=== PATIENT | male | born 1940 | race Caucasian/White ===

== ENCOUNTER 2022-07-04 13:59 | Emergency (ER) | payer BC, MEDICARE, OTHER ==
[2022-07-04] MEDS ORDERED: Sodium Chloride 0.9% 10 ML Syringe FLUSH PRN (14:10)
[2022-07-04 14:34] LABS: HEMATOCRIT 21.1 % (40.0-54.0); MEAN CORPUSCULAR HEMOGLOBIN 35.6 pg (27.0-34.0); MEAN CORPUSCULAR HGB CONC 32.2 g/dL (33.0-35.0); MEAN CORPUSCULAR VOLUME 110.5 fL (80-100); PLATELET COUNT,PLT 102 10^3/uL (150-450); RED BLOOD CELL COUNT 1.91 10^6/uL (4.6-6.2); WHITE BLOOD CELL COUNT,WBC 4.3 10^3/uL (5.0-10.0)
[2022-07-04 14:54] LABS: ALBUMIN 2.9 g/dL (3.4-5.0); ANION GAP 16.2 mEq/L (7-13); BILIRUBIN TOTAL 0.4 mg/dL (0.2-1.0); BUN/CREATININE RATIO 15.5 (No establ ref range); C-REACTIVE PROTEIN 2.3 mg/dL (0.0-0.9); CALCIUM 8.7 mg/dL (8.5-10.1); CREATININE 1.68 mg/dL (0.70-1.30); EST CRCL DRUG DOSING (CG) 30.78 mL/min; POTASSIUM,K 4.2 mmol/L (3.5-5.1); PROTEIN TOTAL,TP 8.3 g/dL (6.4-8.2)
[2022-07-04 14:55] LABS: HEMOGLOBIN 6.8 g/dL (14.0-18.0)
[2022-07-04 14:56] LABS: A/G RATIO 0.54; BASOPHILS PERCENT AUTO 0.5 % (0.0-1.0); EOSINOPHILS PERCENT AUTO 0.5 % (1.0-3.0); LYMPHOCYTES PERCENT AUTO 16.2 % (20.5-50.1); MONOCYTES PERCENT AUTO 9.2 % (2-8); NEUTROPHILS PERCENT AUTO 73.6 % (42.2-75.2)
[2022-07-04 15:02] LABS: INR 1.1 (0.9-1.2); PROTHROMBIN TIME 11.5 SEC (9.0-12.0)
[2022-07-04 15:06] LABS: LACTIC ACID 2.3 mmol/L (0.4-2.0)
[2022-07-04] MEDS ORDERED: Sodium Chloride 0.9% 1,000 ML IV ONE ×2 (15:11→18:08)
[2022-07-04 15:38] LABS: LYMPHOCYTES PERCENT MAN 18 % (20-50); MONOCYTES PERCENT MAN 14 % (2-8); SEG NEUTROPHILS PERCENT MAN 68 % (42-75)
== END 2022-07-04 19:55 | disposition home or self-care (01) ==
LOC: DL.ED 13:59
DX: D64.9 Anemia, unspecified (principal)
CPT/HCPCS: 36415; 36430; 80053; 83605; 85025; 85610; 86140; 86850; 86900; 86901; 86920; 86922; 93005; 99284; J7030; P9016; 93010; J3490

== ENCOUNTER 2022-07-30 07:09 | Emergency (ER) | payer OTHER ==
[2022-07-30] MEDS ORDERED: Sodium Chloride 0.9% 10 ML Syringe FLUSH PRN (07:19)
[2022-07-30 07:35] LABS: HEMOGLOBIN 8.2 g/dL (14.0-18.0); MEAN CORPUSCULAR HEMOGLOBIN 34.3 pg (27.0-34.0); MEAN CORPUSCULAR HGB CONC 32.8 g/dL (33.0-35.0); MEAN CORPUSCULAR VOLUME 104.6 fL (80-100); PLATELET COUNT,PLT 114 10^3/uL (150-450); RED BLOOD CELL COUNT 2.39 10^6/uL (4.6-6.2); WHITE BLOOD CELL COUNT,WBC 3.6 10^3/uL (5.0-10.0)
[2022-07-30 07:50] LABS: BASOPHILS PERCENT AUTO 0.6 % (0.0-1.0); EOSINOPHILS PERCENT AUTO 1.4 % (1.0-3.0); LYMPHOCYTES PERCENT AUTO 16.8 % (20.5-50.1); MONOCYTES PERCENT AUTO 6.7 % (2-8); NEUTROPHILS PERCENT AUTO 74.5 % (42.2-75.2)
[2022-07-30 08:00] LABS: ANION GAP 14.9 mEq/L (7-13); BILIRUBIN TOTAL 0.4 mg/dL (0.2-1.0); BUN/CREATININE RATIO 16.4 (No establ ref range); CALCIUM 9.2 mg/dL (8.5-10.1); CREATININE 1.28 mg/dL (0.70-1.30); POTASSIUM,K 3.9 mmol/L (3.5-5.1); PROTEIN TOTAL,TP 8.2 g/dL (6.4-8.2)
[2022-07-30 08:03] LABS: A/G RATIO 0.58
[2022-07-30 08:19] LABS: BAND PERCENT MAN 5 %; EOSINOPHILS PERCENT MAN 1 % (1-3); LYMPHOCYTES % ATYPICAL MANUAL 1 %; LYMPHOCYTES PERCENT MAN 13 % (20-50); METAMYELOCYTE PERCENT MAN 1; MONOCYTES PERCENT MAN 2 % (2-8); SEG NEUTROPHILS PERCENT MAN 77 % (42-75)
== END 2022-07-30 08:45 | disposition home or self-care (01) ==
LOC: DL.ED 07:09
DX: R42 Dizziness and giddiness (principal); R11.10 Vomiting, unspecified; E78.00 Pure hypercholesterolemia, unspecified; I10 Essential (primary) hypertension; M10.9 Gout, unspecified; Z79.82 Long term (current) use of aspirin; Z79.899 Other long term (current) drug therapy
CPT/HCPCS: 36415; 70450; 80053; 83735; 84484; 85025; 93005; 93010; 99284; J3490

== ENCOUNTER 2022-10-26 13:49 | Inpatient (IN) | payer MEDICARE, BC, OTHER ==
[2022-10-26] MEDS ORDERED: Sodium Chloride 0.9% 10 ML Syringe FLUSH PRN (14:08)
[2022-10-26 14:15] LABS: HEMATOCRIT 25.1 % (40.0-54.0); HEMOGLOBIN 8.2 g/dL (14.0-18.0); MEAN CORPUSCULAR HEMOGLOBIN 33.3 pg (27.0-34.0); MEAN CORPUSCULAR HGB CONC 32.7 g/dL (33.0-35.0); PLATELET COUNT,PLT 69 10^3/uL (150-450); RED BLOOD CELL COUNT 2.46 10^6/uL (4.6-6.2); WHITE BLOOD CELL COUNT,WBC 7.4 10^3/uL (5.0-10.0)
[2022-10-26 14:16] LABS: BASOPHILS PERCENT AUTO 0.4 % (0.0-1.0); EOSINOPHILS PERCENT AUTO 0.3 % (1.0-3.0); LYMPHOCYTES PERCENT AUTO 5.1 % (20.5-50.1); MONOCYTES PERCENT AUTO 8.3 % (2-8); NEUTROPHILS PERCENT AUTO 85.9 % (42.2-75.2)
[2022-10-26 14:29] LABS: LYMPHOCYTES PERCENT MAN 9 % (20-50); MONOCYTES PERCENT MAN 8 % (2-8); SEG NEUTROPHILS PERCENT MAN 83 % (42-75)
[2022-10-26 14:32] LABS: ALBUMIN 2.2 g/dL (3.4-5.0); ANION GAP 20.4 mEq/L (7-13); BILIRUBIN TOTAL 0.6 mg/dL (0.2-1.0); BUN/CREATININE RATIO 21.2 (No establ ref range); CALCIUM 8.7 mg/dL (8.5-10.1); CREATININE 2.83 mg/dL (0.70-1.30); EST CRCL DRUG DOSING (CG) 16.75 mL/min; MAGNESIUM 2.1 mg/dL (1.8-2.4); PHOSPHORUS 5.5 mg/dL (2.6-4.7); POTASSIUM,K 4.4 mmol/L (3.5-5.1); PROTEIN TOTAL,TP 7.8 g/dL (6.4-8.2)
[2022-10-26 14:34] LABS: A/G RATIO 0.39
[2022-10-26 14:37] LABS: INR 1.3 (0.9-1.2); PROTHROMBIN TIME 12.8 SEC (9.0-12.0); PTT,PARTIAL THROMBOPLSTIN TIME 36.2 SEC (22.0-34.0)
[2022-10-26] MEDS ORDERED: Sodium Chloride 0.9% 1,000 ML IV ONE ×2 (14:45→15:40)
[2022-10-26 15:05] LABS: O2 DELIVERY DEVICE ROOM AIR
[2022-10-26 15:06] LABS: BASE EXCESS ARTERIAL -9 mmol/L ((-2)-(+3)); BICARBONATE,ARTERIAL 14.7 mmol/L (22-26); O2 SATURATION ARTERIAL 97 % (95-100); PCO2 ARTERIAL 25 mmHg (35-45); PH,ARTERIAL 7.38 (7.35-7.45); PO2 ARTERIAL 93 mmHg (70-100)
[2022-10-26 15:07] LABS: ALLEN TEST POSITIVE
[2022-10-26 15:15] LABS: LACTIC ACID 5.5 mmol/L (0.4-2.0)
[2022-10-26] MEDS ORDERED: Sodium Bicarbonate 8.4% 50 MEQ/50 ML Syringe IVPUSH ONE (15:15)
[2022-10-26] MEDS ORDERED: Ondansetron 4 MG Tab.DIS PO PRN (16:47)
[2022-10-26] MEDS ORDERED: Acetaminophen 325 MG Tab PO PRN (16:47)
[2022-10-26] MEDS ORDERED: Sodium Chloride 0.9% 500 ML IV SCH (17:00)
[2022-10-26] MEDS ORDERED: Heparin Sodium 5,000 Units/ML Vial SUBCUT SCH (21:00)
[2022-10-26] MEDS: Sodium Chloride 0.9% 1,000 ML IV SCH (22:37)
[2022-10-27 03:06] LABS: APPEARANCE,URINE SLIGHTLY CLOUDY (CLEAR); BILIRUBIN,URINE NEGATIVE (NEGATIVE); COLOR,URINE DARK YELLOW (YELLOW); GLUCOSE,URINE NEGATIVE (NEGATIVE); KETONES,URINE NEGATIVE (NEGATIVE); LEUKOCYTE ESTERASE,URINE NEGATIVE (NEGATIVE); NITRITE,URINE NEGATIVE (NEGATIVE); OCCULT BLOOD,URINE SMALL (NEGATIVE); PH,URINE 6.5 (5.0-9.0); PROTEIN,URINE 30 (NEGATIVE); UROBILINOGEN,URINE 0.2 mg/dL (0.2-1.0)
[2022-10-27 03:23] LABS: AMORPHOUS SEDIMENT,URINE MODERATE /HPF (NOT SEEN); BACTERIA,URINE FEW /HPF (0-FEW/HPF); EPITHELIAL CELLS,URINE FEW /HPF (NOT SEEN); WBC,URINE 0-5 /HPF (0-5/HPF)
[2022-10-27 06:23] LABS: BASOPHILS PERCENT AUTO 0.2 % (0.0-1.0); EOSINOPHILS PERCENT AUTO 0.5 % (1.0-3.0); HEMATOCRIT 21.6 % (40.0-54.0); HEMOGLOBIN 7.2 g/dL (14.0-18.0); LYMPHOCYTES PERCENT AUTO 7.3 % (20.5-50.1); MEAN CORPUSCULAR HEMOGLOBIN 34.3 pg (27.0-34.0); MEAN CORPUSCULAR HGB CONC 33.3 g/dL (33.0-35.0); MEAN CORPUSCULAR VOLUME 102.9 fL (80-100); MONOCYTES PERCENT AUTO 5.1 % (2-8); NEUTROPHILS PERCENT AUTO 86.9 % (42.2-75.2); PLATELET COUNT,PLT 64 10^3/uL (150-450); WHITE BLOOD CELL COUNT,WBC 5.6 10^3/uL (5.0-10.0)
[2022-10-27 06:39] LABS: ANION GAP 13.8 mEq/L (7-13); CALCIUM 7.9 mg/dL (8.5-10.1); CREATININE 2.37 mg/dL (0.70-1.30); EST CRCL DRUG DOSING (CG) 20.36 mL/min; POTASSIUM,K 3.8 mmol/L (3.5-5.1)
[2022-10-27] MEDS: Sodium Chloride 0.9% 1,000 ML IV SCH ×2 (08:44→19:31)
[2022-10-27] MEDS: cefTRIAXone 1 GM Vial IVPUSH SCH (14:23)
[2022-10-27] MEDS: Melatonin 3 MG Tab PO PRN (19:51)
[2022-10-28] MEDS: Sodium Chloride 0.9% 1,000 ML IV SCH (05:34)
[2022-10-28 06:08] LABS: MEAN CORPUSCULAR HEMOGLOBIN 33.7 pg (27.0-34.0); MEAN CORPUSCULAR HGB CONC 32.8 g/dL (33.0-35.0); MEAN CORPUSCULAR VOLUME 102.7 fL (80-100); RED BLOOD CELL COUNT 1.87 10^6/uL (4.6-6.2); WHITE BLOOD CELL COUNT,WBC 5.3 10^3/uL (5.0-10.0)
[2022-10-28 06:14] LABS: HEMATOCRIT 19.2 % (40.0-54.0); HEMOGLOBIN 6.3 g/dL (14.0-18.0)
[2022-10-28 06:18] LABS: ANION GAP 14.8 mEq/L (7-13); CALCIUM 7.7 mg/dL (8.5-10.1); CREATININE 2.42 mg/dL (0.70-1.30); EST CRCL DRUG DOSING (CG) 19.94 mL/min; POTASSIUM,K 3.8 mmol/L (3.5-5.1)
[2022-10-28] MEDS ORDERED: diphenhydrAMINE 50 MG/ML SDV IV ONE (09:18)
[2022-10-28] MEDS ORDERED: Sodium Chloride 0.9% 1,000 ML IV SCH (09:30)
[2022-10-28] MEDS ORDERED: Furosemide 20 MG/2 ML VIAL IVPUSH ONE (09:45)
[2022-10-28] MEDS: cefTRIAXone 1 GM Vial IVPUSH SCH (11:21)
[2022-10-29 05:51] LABS: MEAN CORPUSCULAR HGB CONC 33.2 g/dL (33.0-35.0); MEAN CORPUSCULAR VOLUME 102.5 fL (80-100); RED BLOOD CELL COUNT 1.97 10^6/uL (4.6-6.2); WHITE BLOOD CELL COUNT,WBC 6.1 10^3/uL (5.0-10.0)
[2022-10-29 05:54] LABS: HEMATOCRIT 20.2 % (40.0-54.0); HEMOGLOBIN 6.7 g/dL (14.0-18.0)
[2022-10-29 06:04] LABS: ANION GAP 16.1 mEq/L (7-13); CALCIUM 7.8 mg/dL (8.5-10.1); CREATININE 2.18 mg/dL (0.70-1.30); EST CRCL DRUG DOSING (CG) 22.14 mL/min; POTASSIUM,K 4.1 mmol/L (3.5-5.1)
[2022-10-29] MEDS ORDERED: diphenhydrAMINE 50 MG/ML SDV IV ONE (08:00)
[2022-10-29] MEDS ORDERED: Furosemide 20 MG/2 ML VIAL IVPUSH ONE (11:00)
[2022-10-29] MEDS: cefTRIAXone 1 GM Vial IVPUSH SCH (11:10)
[2022-10-29 16:07] LABS: HEMATOCRIT 30.8 % (40.0-54.0); HEMOGLOBIN 10.6 g/dL (14.0-18.0)
[2022-10-29] MEDS ORDERED: predniSONE 20 MG Tab PO ONE (22:50)
[2022-10-30 09:28] LABS: HEMATOCRIT 30.7 % (40.0-54.0); HEMOGLOBIN 10.4 g/dL (14.0-18.0); MEAN CORPUSCULAR HEMOGLOBIN 32.3 pg (27.0-34.0); MEAN CORPUSCULAR HGB CONC 33.9 g/dL (33.0-35.0); MEAN CORPUSCULAR VOLUME 95.3 fL (80-100); RED BLOOD CELL COUNT 3.22 10^6/uL (4.6-6.2); WHITE BLOOD CELL COUNT,WBC 3.5 10^3/uL (5.0-10.0)
[2022-10-30 09:56] LABS: ANION GAP 16.2 mEq/L (7-13); CALCIUM 8.1 mg/dL (8.5-10.1); CREATININE 2.08 mg/dL (0.70-1.30); EST CRCL DRUG DOSING (CG) 23.2 mL/min; POTASSIUM,K 4.2 mmol/L (3.5-5.1)
[2022-10-30] MEDS: predniSONE 20 MG Tab PO SCH (10:13)
[2022-10-30] MEDS: cefTRIAXone 1 GM Vial IVPUSH SCH (10:15)
[2022-10-30] MEDS: Melatonin 3 MG Tab PO PRN (23:29)
[2022-10-31] MEDS: predniSONE 20 MG Tab PO SCH (09:30)
[2022-10-31] MEDS: cefTRIAXone 1 GM Vial IVPUSH SCH (11:04)
[2022-10-31] MEDS ORDERED: Saccharomyces Boulardii (Probiotic) 250 MG Cap PO SCH (12:00)
== END 2022-10-31 14:00 | disposition home health service (06) | DRG 683 ==
LOC: DL.ED 13:49 → DL.MS 15:44
PROVIDERS: ADMIT Hospitalist; ATTEND Hospitalist
PROC: 30233N1 Transfusion of Nonautologous Red Blood Cells into Peripheral Vein, Percutaneous Approach (ICD-10-PCS; principal; 2022-10-30)
DX: N17.9 Acute kidney failure, unspecified (principal); E87.1 Hypo-osmolality and hyponatremia; E87.20 Acidosis, unspecified; I12.9 Hypertensive chronic kidney disease with stage 1 through stage 4 chronic kidney disease, or unspecified chronic kidney disease; E78.5 Hyperlipidemia, unspecified; N18.30 Chronic kidney disease, stage 3 unspecified; D63.1 Anemia in chronic kidney disease; D69.6 Thrombocytopenia, unspecified; D46.9 Myelodysplastic syndrome, unspecified; M10.9 Gout, unspecified; M25.439 Effusion, unspecified wrist; R62.7 Adult failure to thrive; Z68.21 Body mass index [BMI] 21.0-21.9, adult; Z97.3 Presence of spectacles and contact lenses; I10 Essential (primary) hypertension; E78.00 Pure hypercholesterolemia, unspecified; Z79.82 Long term (current) use of aspirin; Z79.899 Other long term (current) drug therapy
CPT/HCPCS: 36415; 36430; 36600; 71045; 76770; 80048; 80053; 80202; 81001; 82272; 82803; 82947; 83605; 83735; 84100; 84484; 85014; 85018; 85025; 85027; 85610; 85730; 86140; 86850; 86900; 86901; 86920; 86922; 87040; 87493; 93005; 93010; 96374; 97165-GO; 99223; 99233; 99239; 99284; 99285-25; A9270-GY; J0696; J1200; J1940; J3370; J3490; J7030; J7040; J7050; J7512; P9016

== ENCOUNTER 2022-11-01 19:00 | Inpatient (IN) | payer MEDICARE, BC, OTHER ==
[2022-11-01] MEDS ORDERED: Sodium Chloride 0.9% 10 ML Syringe FLUSH PRN (19:27)
[2022-11-01 19:38] LABS: HEMATOCRIT 29.5 % (40.0-54.0); HEMOGLOBIN 9.7 g/dL (14.0-18.0); MEAN CORPUSCULAR HEMOGLOBIN 32.2 pg (27.0-34.0); MEAN CORPUSCULAR HGB CONC 32.9 g/dL (33.0-35.0); PLATELET COUNT,PLT 63 10^3/uL (150-450); RED BLOOD CELL COUNT 3.01 10^6/uL (4.6-6.2); WHITE BLOOD CELL COUNT,WBC 9.8 10^3/uL (5.0-10.0)
[2022-11-01 19:44] LABS: BASOPHILS PERCENT AUTO 0.1 % (0.0-1.0); LYMPHOCYTES PERCENT AUTO 4.2 % (20.5-50.1); MONOCYTES PERCENT AUTO 8.2 % (2-8); NEUTROPHILS PERCENT AUTO 87.5 % (42.2-75.2)
[2022-11-01 19:47] LABS: INR 1.3 (0.9-1.2); PROTHROMBIN TIME 13.4 SEC (9.0-12.0)
[2022-11-01] MEDS ORDERED: Sodium Chloride 0.9% 1,000 ML IV ONE ×3 (19:51→21:16)
[2022-11-01 19:52] LABS: ALANINE AMINOTRANSFERASE,ALT 29 U/L (16-63); ALBUMIN 1.9 g/dL (3.4-5.0); ALKALINE PHOSPHATASE 85 U/L (46-116); ANION GAP 19.3 mEq/L (7-13); ASPARTATE AMNIOTRANSFERASE,AST 32 U/L (15-37); BILIRUBIN TOTAL 0.6 mg/dL (0.2-1.0); BLOOD UREA NITROGEN,BUN 72 mg/dL (7-18); BUN/CREATININE RATIO 35.5 (No establ ref range); C-REACTIVE PROTEIN 5.29 ng/dL (<=0.30); CALCIUM 8.9 mg/dL (8.5-10.1); CARBON DIOXIDE,CO2 20 mmol/L (21-32); CHLORIDE,CL 108 mmol/L (98-107); CREATININE 2.03 mg/dL (0.70-1.30); GLUCOSE RANDOM 96 mg/dL (70-99); MAGNESIUM 2.1 mg/dL (1.8-2.4); POTASSIUM,K 4.3 mmol/L (3.5-5.1); PROTEIN TOTAL,TP 6.7 g/dL (6.4-8.2); SODIUM,NA 143 mmol/L (136-145)
[2022-11-01 19:53] LABS: O2 DELIVERY DEVICE ROOM AIR
[2022-11-01 19:58] LABS: BASE EXCESS VENOUS -6.4 mmol/l ((-2)-(+3)); BICARBONATE,VENOUS 18 mmol/l (19-25); PCO2 VENOUS 35 mmHg (41-51); PH,VENOUS 7.34 (7.31-7.41); PO2 VENOUS 36 mmHg (35-42)
[2022-11-01 19:58] LABS: EST CRCL DRUG DOSING (CG) 26.85 mL/min; ESTIMATED GFR 32 mL/min (>=60)
[2022-11-01 19:59] LABS: ETHANOL BLOOD MEDICAL < 3 mg/dL (0); LACTIC ACID 6.2 mmol/L (0.4-2.0)
[2022-11-01 20:25] LABS: LYMPHOCYTES PERCENT MAN 2 % (20-50); MONOCYTES PERCENT MAN 5 % (2-8); SEG NEUTROPHILS PERCENT MAN 93 % (42-75)
[2022-11-01 22:26] LABS: APPEARANCE,URINE CLEAR (CLEAR); BILIRUBIN,URINE NEGATIVE (NEGATIVE); COLOR,URINE YELLOW (YELLOW); GLUCOSE,URINE NEGATIVE (NEGATIVE); KETONES,URINE NEGATIVE (NEGATIVE); LEUKOCYTE ESTERASE,URINE NEGATIVE (NEGATIVE); NITRITE,URINE NEGATIVE (NEGATIVE); OCCULT BLOOD,URINE TRACE-INTACT (NEGATIVE); PH,URINE 5.5 (5.0-9.0); PROTEIN,URINE NEGATIVE (NEGATIVE); UROBILINOGEN,URINE 0.2 mg/dL (0.2-1.0)
[2022-11-01 22:29] LABS: AMPHETAMINES,URINE NEGATIVE (NEGATIVE); BARBITURATES,URINE NEGATIVE (NEGATIVE); BENZODIAZEPINE,URINE NEGATIVE (NEGATIVE); MDMA (ECSTASY), URINE NEGATIVE (NEGATIVE); METHADONE,URINE NEGATIVE (NEGATIVE); METHAMPHETAMINES,URINE NEGATIVE (NEGATIVE); OPIATES,URINE NEGATIVE (NEGATIVE); OXYCODONE,URINE NEGATIVE (NEGATIVE); PHENCYCLIDINE,URINE NEGATIVE (NEGATIVE); TCA,URINE NEGATIVE (NEGATIVE)
[2022-11-01 22:34] LABS: EPITHELIAL CELLS,URINE RARE /HPF (NOT SEEN); RBC,URINE 0-5 /HPF (0-5); WBC,URINE 0-5 /HPF (0-5/HPF)
[2022-11-01 22:35] LABS: AMORPHOUS SEDIMENT,URINE MODERATE /HPF (NOT SEEN); BACTERIA,URINE FEW /HPF (0-FEW/HPF); FINE GRANULAR CASTS,URINE FEW /LPF (NOT SEEN); GRANULAR CASTS,URINE RARE; MUCUS,URINE FEW /LPF (NOT SEEN)
[2022-11-02] MEDS ORDERED: Sennosides/Docusate Sodium 50-8.6 MG Tab PO PRN (10:22)
[2022-11-02] MEDS: Saccharomyces Boulardii (Probiotic) 250 MG Cap PO SCH ×2 (12:49→17:05)
[2022-11-02] MEDS ORDERED: Sodium Chloride 0.9% 10 ML Syringe FLUSH PRN (14:50)
[2022-11-02] MEDS: Aspirin 81 MG Tab.EC PO SCH (20:28)
[2022-11-02] MEDS: Loratadine 10 MG Tab PO SCH (20:28)
[2022-11-02] MEDS: amLODIPine 5 MG Tab PO SCH (20:28)
[2022-11-02] MEDS: atorvaSTATin 20 MG Tab PO SCH (20:28)
[2022-11-02] MEDS: Cyanocobalamin (Vitamin B12) 1,000 MCG Tab PO SCH (20:28)
[2022-11-02] MEDS: Folic Acid 1 MG Tab PO SCH (20:28)
[2022-11-02] MEDS: Lisinopril 5 MG Tab PO SCH (20:28)
[2022-11-02] MEDS: CEFDINIR 300 MG PO SCH (20:29)
[2022-11-03] MEDS: Saccharomyces Boulardii (Probiotic) 250 MG Cap PO SCH ×3 (08:53→17:18)
[2022-11-03] MEDS: CEFDINIR 300 MG PO SCH ×2 (08:53→20:16)
[2022-11-03] MEDS: predniSONE 20 MG Tab PO SCH (08:53)
[2022-11-03] MEDS: atorvaSTATin 20 MG Tab PO SCH (20:16)
[2022-11-03] MEDS: Cyanocobalamin (Vitamin B12) 1,000 MCG Tab PO SCH (20:16)
[2022-11-03] MEDS: Folic Acid 1 MG Tab PO SCH (20:16)
[2022-11-03] MEDS: Aspirin 81 MG Tab.EC PO SCH (20:16)
[2022-11-03] MEDS: Lisinopril 5 MG Tab PO SCH (20:16)
[2022-11-03] MEDS: amLODIPine 5 MG Tab PO SCH (20:16)
[2022-11-03] MEDS: Loratadine 10 MG Tab PO SCH (20:17)
[2022-11-04] MEDS: predniSONE 20 MG Tab PO SCH (08:51)
[2022-11-04] MEDS: Saccharomyces Boulardii (Probiotic) 250 MG Cap PO SCH ×2 (08:51→12:20)
[2022-11-04 11:19] LABS: ALBUMIN 1.9 g/dL (3.4-5.0); BILIRUBIN TOTAL 0.8 mg/dL (0.2-1.0); BUN/CREATININE RATIO 34.3 (No establ ref range); CALCIUM 8.1 mg/dL (8.5-10.1); CREATININE 1.4 mg/dL (0.70-1.30); EST CRCL DRUG DOSING (CG) 38.94 mL/min; PROTEIN TOTAL,TP 5.9 g/dL (6.4-8.2)
[2022-11-04 11:21] LABS: A/G RATIO 0.48
[2022-11-04] MEDS: CEFDINIR 300 MG PO SCH (12:20)
== END 2022-11-04 12:57 | disposition other institution (70) | DRG 683 ==
LOC: DL.ED 19:00 → DL.MS 11-02 09:36 → OBSVTOIN 11-03 14:34
PROVIDERS: ADMIT Hospitalist; ATTEND Hospitalist
DX: N17.9 Acute kidney failure, unspecified (principal); E44.0 Moderate protein-calorie malnutrition; E87.20 Acidosis, unspecified; Z94.81 Bone marrow transplant status; N18.30 Chronic kidney disease, stage 3 unspecified; H54.7 Unspecified visual loss; E78.5 Hyperlipidemia, unspecified; D63.1 Anemia in chronic kidney disease; Z74.1 Need for assistance with personal care; Z66 Do not resuscitate; F03.90 Unspecified dementia, unspecified severity, without behavioral disturbance, psychotic disturbance, mood disturbance, and anxiety; E87.8 Other disorders of electrolyte and fluid balance, not elsewhere classified; D46.9 Myelodysplastic syndrome, unspecified; Z20.822 Contact with and (suspected) exposure to COVID-19; E83.52 Hypercalcemia; I12.9 Hypertensive chronic kidney disease with stage 1 through stage 4 chronic kidney disease, or unspecified chronic kidney disease; I10 Essential (primary) hypertension; E78.00 Pure hypercholesterolemia, unspecified; M10.9 Gout, unspecified; Z79.82 Long term (current) use of aspirin; Z79.899 Other long term (current) drug therapy; W19.XXXA Unspecified fall, initial encounter
CPT/HCPCS: 36415 ×2; 70450; 71045; 80053; 80305; 80307; 81001; 82140; 82803; 82947; 83605 ×3; 83735; 84145; 84484 ×3; 85025; 85610; 85730; 86140; 87040 ×2; 93005; 96360; 96361 ×2; 97161; 97165; 97530; 99285; A9270 ×11; G0378 ×3; J7030 ×3; J7512; 99223; 99233; 99238; J3490; U0002

== ENCOUNTER 2023-06-14 06:11 | Day surgery (SDC) | payer MEDICARE, BC ==
[~2023-06-14 06:11] MED LIST: Proparacaine 0.5% Ophth Soln 15 ML Bottle ONE
[2023-06-14] MEDS ORDERED: Ondansetron 4 MG/2 ML SDV IVPUSH PRN (06:30)
[2023-06-14] MEDS ORDERED: Acetaminophen/Codeine 300-30 MG Tab PO PRN (06:30)
[2023-06-14] MEDS ORDERED: Acetaminophen 325 MG Tab PO PRN (06:30)
[2023-06-14] MEDS: Proparacaine 0.5% Ophth Soln 15 ML Bottle EYELF ONE ×2 (06:37→07:50)
[2023-06-14] MEDS: Sodium Chloride 0.9% 10 ML Syringe FLUSH PRN (06:37)
[2023-06-14] MEDS: Phenylephrine 10% Ophth Soln 5 ML Bot EYELF ONE (06:38)
[2023-06-14] MEDS: Moxifloxacin 0.5% Ophth Soln 3 ML Bottle EYELF ONE (06:38)
[2023-06-14] MEDS: Timolol Maleate 0.5% Ophth Soln 5 ML Bottle EYELF ONE (06:38)
[2023-06-14] MEDS: Tropicamide 1% Ophth Soln 15 ML Bottle EYELF ONE (06:38)
[2023-06-14] MEDS: Cataract Ophth Solution EYELF ONE (06:39)
[2023-06-14] MEDS: Povidone-Iodine 5% Sterile Ophth Soln 30 ML Bottle EYELF ONE ×2 (06:39→07:50)
[2023-06-14] MEDS: Apraclonidine 0.5% Ophth Soln 5 ML Bot EYELF ONE (07:50)
[2023-06-14] MEDS: Dexamethasone/Neomycin/Polymyxin B Ophth Oint 3.5 GM Tube EYELF ONE (07:51)
[2023-06-14] MEDS: Diclofenac Sodium 0.1% Ophth Soln 5 ML Bottle EYELF ONE (07:51)
[2023-06-14] MEDS: Lidocaine 1% 30 ML SDV INJECT ONE (07:52)
[2023-06-14] MEDS: Vancomycin 500 MG SDV EYELF ONE (07:52)
== END 2023-06-14 08:39 | disposition home or self-care (01) ==
LOC: DL.SDS 06:11
PROVIDERS: ATTEND Ophthalmology
DX: H25.812 Combined forms of age-related cataract, left eye (principal); I12.9 Hypertensive chronic kidney disease with stage 1 through stage 4 chronic kidney disease, or unspecified chronic kidney disease; N18.32 Chronic kidney disease, stage 3b; E78.5 Hyperlipidemia, unspecified; Z79.899 Other long term (current) drug therapy
CPT/HCPCS: 66984; A9270; J3370; 00142; 99100; J3490

== ENCOUNTER 2023-06-28 06:44 | Day surgery (SDC) | payer MEDICARE, BC ==
[2023-06-28] MEDS ORDERED: Midazolam 1 MG/ML 2 ML SDV IV ONE (06:45)
[2023-06-28] MEDS ORDERED: Dexamethasone 4 MG/ML SDV IV ONE (06:45)
[2023-06-28] MEDS ORDERED: Sodium Chloride 0.9% 10 ML Syringe IV ONE (06:45)
[2023-06-28] MEDS ORDERED: Acetaminophen/Codeine 300-30 MG Tab PO PRN (07:00)
[2023-06-28] MEDS ORDERED: Acetaminophen 325 MG Tab PO PRN (07:00)
[2023-06-28] MEDS ORDERED: Ondansetron 4 MG/2 ML SDV IVPUSH PRN (07:00)
[2023-06-28] MEDS: Timolol Maleate 0.5% Ophth Soln 5 ML Bottle EYERT ONE (07:14)
[2023-06-28] MEDS: Tropicamide 1% Ophth Soln 15 ML Bottle EYERT ONE (07:14)
[2023-06-28] MEDS: Moxifloxacin 0.5% Ophth Soln 3 ML Bottle EYERT ONE (07:14)
[2023-06-28] MEDS: Phenylephrine 10% Ophth Soln 5 ML Bot EYERT ONE (07:14)
[2023-06-28] MEDS: Cataract Ophth Solution EYERT ONE (07:15)
[2023-06-28] MEDS: Proparacaine 0.5% Ophth Soln 15 ML Bottle EYERT ONE ×2 (07:15→08:47)
[2023-06-28] MEDS: Povidone-Iodine 5% Sterile Ophth Soln 30 ML Bottle EYERT ONE ×2 (07:15→08:46)
[2023-06-28] MEDS: Sodium Chloride 0.9% 10 ML Syringe FLUSH PRN (07:15)
[2023-06-28] MEDS: Lidocaine 1% 30 ML SDV ONE (08:46)
[2023-06-28] MEDS: Diclofenac Sodium 0.1% Ophth Soln 5 ML Bottle EYERT ONE (08:47)
[2023-06-28] MEDS: Dexamethasone/Neomycin/Polymyxin B Ophth Oint 3.5 GM Tube EYERT ONE (08:47)
[2023-06-28] MEDS: Apraclonidine 0.5% Ophth Soln 5 ML Bot EYERT ONE (08:47)
[2023-06-28] MEDS: Vancomycin 500 MG SDV EYERT ONE (08:47)
== END 2023-06-28 09:25 | disposition home or self-care (01) ==
LOC: DL.SDS 06:44
PROVIDERS: ATTEND Ophthalmology
DX: H25.811 Combined forms of age-related cataract, right eye (principal); I12.9 Hypertensive chronic kidney disease with stage 1 through stage 4 chronic kidney disease, or unspecified chronic kidney disease; N18.32 Chronic kidney disease, stage 3b; E78.5 Hyperlipidemia, unspecified
CPT/HCPCS: A9270-GY; J1100; J2250; J3370; J3490

== ENCOUNTER 2024-05-27 13:29 | Emergency (ER) | payer MEDICARE, BC ==
[2024-05-27 14:30] LABS: HEMATOCRIT 25.1 % (40.0-54.0); HEMOGLOBIN 8.1 g/dL (14.0-18.0); MEAN CORPUSCULAR HEMOGLOBIN 36.8 pg (27.0-34.0); MEAN CORPUSCULAR HGB CONC 32.3 g/dL (33.0-35.0); MEAN CORPUSCULAR VOLUME 114.1 fL (80-100); PLATELET COUNT,PLT 646 10^3/uL (150-450)
[2024-05-27 14:43] LABS: A/G RATIO 1.1; ALANINE AMINOTRANSFERASE,ALT 17 U/L (16-63); ALBUMIN 3.8 g/dL (3.4-5.0); ALKALINE PHOSPHATASE 61 U/L (46-116); ANION GAP 28.5 mEq/L (7-13); ASPARTATE AMNIOTRANSFERASE,AST 9 U/L (15-37); BILIRUBIN TOTAL 0.9 mg/dL (0.2-1.0); BLOOD UREA NITROGEN,BUN 46 mg/dL (7-18); BUN/CREATININE RATIO 13.1 (No establ ref range); CALCIUM 8.6 mg/dL (8.5-10.1); CARBON DIOXIDE,CO2 18 mmol/L (21-32); CHLORIDE,CL 95 mmol/L (98-107); ESTIMATED GFR 16 mL/min (>=60); GLUCOSE RANDOM 365 mg/dL (70-99); MAGNESIUM 1.9 mg/dL (1.8-2.4); POTASSIUM,K 3.5 mmol/L (3.5-5.1); PROTEIN TOTAL,TP 7.3 g/dL (6.4-8.2); SODIUM,NA 138 mmol/L (136-145)
[2024-05-27 14:45] LABS: BASOPHILS PERCENT AUTO 6.5 % (0.0-1.0); LYMPHOCYTES PERCENT AUTO 7.3 % (20.5-50.1); MONOCYTES PERCENT AUTO 15.1 % (2-8); NEUTROPHILS PERCENT AUTO 71.1 % (42.2-75.2)
[2024-05-27 14:51] LABS: BASE EXCESS VENOUS -7.1 mmol/l ((-2)-(+3)); BICARBONATE,VENOUS 20 mmol/l (19-25); O2 DELIVERY DEVICE ROOM AIR; O2 SATURATION VENOUS 22.1 % (60-80); PCO2 VENOUS 49 mmHg (41-51); PO2 VENOUS 29 mmHg (35-42)
[2024-05-27 14:53] LABS: KETONES,BLOOD NEGATIVE
[2024-05-27 14:53] LABS: PH,VENOUS 7.23 (7.31-7.41)
[2024-05-27] MEDS ORDERED: Sodium Chloride 0.9% 2,000 ML IV ONE (15:00)
[2024-05-27] MEDS: Sodium Chloride 0.9% 500 ML IV ONE (15:03)
[2024-05-27 15:05] LABS: BASOPHILS PERCENT MAN 4; LYMPHOCYTES PERCENT MAN 5 % (20-50); MONOCYTES PERCENT MAN 11 % (2-8); SEG NEUTROPHILS PERCENT MAN 80 % (42-75)
== END 2024-05-27 17:35 ==
LOC: DL.ED 13:29
DX: I12.9 Hypertensive chronic kidney disease with stage 1 through stage 4 chronic kidney disease, or unspecified chronic kidney disease (principal); N18.9 Chronic kidney disease, unspecified; N17.9 Acute kidney failure, unspecified; E78.00 Pure hypercholesterolemia, unspecified; Z79.82 Long term (current) use of aspirin; Z79.899 Other long term (current) drug therapy
CPT/HCPCS: 36415; 80053; 82009; 82803; 83735; 84484; 85025; 86850; 86900; 86901; 93005; 93010; 96360; 99284; 99285; J7030